=== PATIENT | female | born 1945 | race Caucasian/White ===

== ENCOUNTER 2023-10-25 08:32 | Emergency (ER) | payer MEDICARE, OTHER ==
--- NOTE | 2023-10-25 09:11 | ED Physician Documentation ---
PD HPI URI - Stated complaint Stated Complaint: STUFFY NOSE,SORE THROAT - Chief complaint Chief Complaint: Heent - History obtained from History obtained from: Patient - History of Present Illness Timing - onset: How many days ago (3) Timing duration: Days (3) Timing details: Abrupt onset, Still present Associated symptoms: Nasal congestion, Sinus pain (mostly right side face), Sore throat (sore mostly in mornings.), Swollen nodes (anterior neck, right moslty.). No: Fever, Chills, Dry cough Contributing factors: No: Sick contact Similar symptoms before: Diagnosis (sinus infections remote past.) Review of Systems Constitutional: denies: Fever, Chills Nose: reports: Rhinorrhea / runny nose (purulent with some blood.), Sinus pressure / pain Throat: reports: Sore throat Respiratory: denies: Cough PD PAST MEDICAL HISTORY - Past Medical History Past Medical History: Yes Cardiovascular: None Respiratory: None Other Past Medical History: IBS - Past Surgical History Past Surgical History: No - Present Medications Home Medications: Ambulatory Orders Medication Instructions Recorded Confirmed Cetirizine [ZyrTEC] 10 mg PO BID #15 tablet 10/25/23 Doxycycline Hyclate 100 mg PO BID 7 Days #14 cap 10/25/23 Fluticasone Propionate 2 spr NS DAILY 30 Days #1 ml 10/25/23 - Allergies Allergies/Adverse Reactions: Allergies Allergy/AdvReac Type Severity Reaction Status Date / Time No Known Drug Allergies Allergy Verified 10/25/23 08:45 - Social History Does the pt smoke?: No Smoking Status: Never smoker Does the pt drink ETOH?: Yes Does the pt have substance abuse?: No - Immunizations Immunizations are current?: Yes PD ED PE NORMAL - Vitals Vital signs reviewed: Yes - General General: Alert and oriented X 3, No acute distress, Well developed/nourished - HEENT HEENT: Ears normal, Pharynx benign - Neck Neck: Supple, no meningeal sign, Other (right anterior adenopathy mild. ) - Cardiac Cardiac: RRR, No murmur - Respiratory Respiratory: Clear bilaterally - Abdomen Abdomen: Soft, Non tender - Derm Derm: Normal color, Warm and dry Results - Vitals Vitals: Oxygen O2 Source Room air PD Medical Decision Making - ED course Complexity details: considered differential (17 fairly localized to sinus symptoms with some sore throat but mainly sinus discharge and pressure. She states amoxicillin makes her sick but not a true allergy. Will go for other antibiotic.), d/w patient Reviewed Lab Results: sounds more localized to right sinus system rather than general URI. Can treat as sinusitis. Departure - Departure Disposition: 01 Home, Self Care Clinical Impression: Acute sinus infection Condition: Stable Record reviewed to determine appropriate education?: Yes Instructions: ED Sinusitis Abx Tx Prescriptions: Doxycycline Hyclate 100 mg PO BID 7 Days #14 cap Fluticasone Propionate 2 spr NS DAILY 30 Days #1 ml Cetirizine [ZyrTEC] 10 mg PO BID #15 tablet Comments: It does sound like you have a sinus infection. We can treat it as potential bacterial with doxycycline antibiotic twice daily for a week. I would also suggest some anti-inflammatory. We gave you a dose orally of a steroid here and then have you continue with the fluticasone nasal spray twice daily. Continue with cleansing sprays and antihistamines such as the a Stelazine. I would also suggest an oral antihistamine for the congestion and this will help your ear pressure a little bit more as well. Stay well-hydrated. I would anticipate improvement over the next few days. I sent your prescriptions to [facility] pharmacy in [place]. Forms: PCP List Discharge Date/Time: 10/25/23 09:53
[2023-10-25] MEDS: dexAMETHasone 4 MG TABLET PO STA (09:49)
[2023-10-25] MEDS: DOXYCYCLINE 100 MG TABLET PO STA (09:49)
[2023-10-25 09:54] VITALS: BP 153/85; O2SAT 98
== END 2023-10-25 09:53 | disposition home or self-care (01) ==
LOC: ED 08:32
DX: J01.90 Acute sinusitis, unspecified (principal)
CPT/HCPCS: 99283; A9270; J8540